=== PATIENT | male | born 1950 | race Caucasian/White ===

== ENCOUNTER 2021-04-08 23:28 | Inpatient (IN) | payer MEDICARE, OTHER ==
[~2021-04-08] VITALS: Ht 172.7 cm; Wt 109.1 kg
[2021-04-09] MEDS ORDERED: ELIQUIS 5 MG TAB5 MG PO (00:50)
[2021-04-09] MEDS ORDERED: PACERONE200 MG PO (00:50)
[2021-04-09] MEDS ORDERED: ASPIRIN CHEWABL81 MG PO (00:51)
[2021-04-09] MEDS ORDERED: BUMETANIDE1 MG PO (00:51)
[2021-04-09] MEDS ORDERED: ATORVASTATIN CA80 MG PO (00:51)
[2021-04-09] MEDS ORDERED: ALL DAY ALLERGY10 M2 PO (00:52)
[2021-04-09] MEDS ORDERED: DOCUSATE SODIU100 MG PO (00:53)
[2021-04-09] MEDS ORDERED: IRON325 M1 PO (00:58)
[2021-04-09] MEDS ORDERED: HYDROCODON-ACE1 EAC2 PO (00:59)
[2021-04-09] MEDS ORDERED: LANTUS INS100 UTS/M1 SQ (00:59)
[2021-04-09] MEDS ORDERED: GABAPENTIN600 MG PO (00:59)
[2021-04-09] MEDS ORDERED: MAGNESIUM400 M2 PO (01:00)
[2021-04-09] MEDS ORDERED: TRADJENTA5 MG PO (01:00)
[2021-04-09] MEDS ORDERED: ZAROXOLYN/DIULO5 MG PO (01:01)
[2021-04-09] MEDS ORDERED: METOPROLOL TART25 MG PO (01:01)
[2021-04-09] MEDS ORDERED: MIRALAX17 GM PO (01:02)
[2021-04-09] MEDS ORDERED: POTASSIUM CHLO10 MEQ PO (01:03)
[2021-04-09] MEDS ORDERED: VICTOZA 1818 MG/3 ML SC (01:03)
[2021-04-09] MEDS ORDERED: TOPROL XL25 MG PO (01:06)
[2021-04-09 01:26] LABS: HEMOGLOBIN 9.1 gm/dl (14.0-17.5); RED BLOOD COUNT 3.17 M/UL (4.20-5.50); WHITE BLOOD COUNT 6.9 K/UL (4.5-11.0)
[2021-04-09 15:44] LABS: BUN/CREATININE RATIO 22 (0-10)
[2021-04-10 04:39] LABS: HEMOGLOBIN 9.4 gm/dl (14.0-17.5); RED BLOOD COUNT 3.27 M/UL (4.20-5.50); WHITE BLOOD COUNT 6.5 K/UL (4.5-11.0)
[2021-04-10] MEDS ORDERED: DECADRON6 MG PO (15:41)
[2021-04-10] MEDS ORDERED: VENTOLIN HFA 66.7 GM INH (15:41)
--- NOTE | 2021-04-10 18:52 | NUR ---
PATIENT SIGNING OUT DR.KHAN JORDON AWARE. PATIENT EXPLAINED RISK VS BENIFITS AND VERBALIZED UNDERSTANDING. PATIENT WAITING ON RIDE.
== END 2021-04-10 19:50 | disposition left against medical advice (07) | DRG 177 ==
LOC: CCU 23:28 → M/S 04-09 17:00
PROVIDERS: Internal Medicine; ADMIT Internal Medicine Infectious Disease
PROC: 3E0333Z Introduction of Anti-inflammatory into Peripheral Vein, Percutaneous Approach (ICD-10-PCS; principal; 2021-04-09)
PROC: 8E0ZXY6 Isolation (ICD-10-PCS; principal; 2021-04-09)
PROC: XW033E5 Introduction of Remdesivir Anti-infective into Peripheral Vein, Percutaneous Approach, New Technology Group 5 (ICD-10-PCS; principal; 2021-04-09)
DX: U07.1 COVID-19 (principal); J12.82 Pneumonia due to coronavirus disease 2019; J96.01 Acute respiratory failure with hypoxia; L97.429 Non-pressure chronic ulcer of left heel and midfoot with unspecified severity; N17.9 Acute kidney failure, unspecified; I13.0 Hypertensive heart and chronic kidney disease with heart failure and stage 1 through stage 4 chronic kidney disease, or unspecified chronic kidney disease; I50.42 Chronic combined systolic (congestive) and diastolic (congestive) heart failure; Z53.29 Procedure and treatment not carried out because of patient's decision for other reasons; E87.6 Hypokalemia; I25.10 Atherosclerotic heart disease of native coronary artery without angina pectoris; E78.5 Hyperlipidemia, unspecified; E11.40 Type 2 diabetes mellitus with diabetic neuropathy, unspecified; E11.22 Type 2 diabetes mellitus with diabetic chronic kidney disease; E66.9 Obesity, unspecified; N18.30 Chronic kidney disease, stage 3 unspecified; Z79.4 Long term (current) use of insulin; Z68.30 Body mass index [BMI] 30.0-30.9, adult; Z95.1 Presence of aortocoronary bypass graft; Z83.3 Family history of diabetes mellitus; Z86.711 Personal history of pulmonary embolism; Z79.01 Long term (current) use of anticoagulants
CPT/HCPCS: 36415; 71045; 80048; 80053; 80307; 82550; 82553; 82607; 82728; 82746; 82962; 83036; 83615; 83735; 84132; 84439; 84443; 84484; 85025; 85379; 87040; 94640; 94664; 94760; C9113; J0692; J1100; J2020; J7030; J7050